=== PATIENT | female | born 1960 | race African-American/Black ===

== ENCOUNTER 2017-02-16 00:22 | Emergency (ER) | payer MEDICAID, OTHER ==
[~2017-02-16] VITALS: Ht 162.6 cm; Wt 68.0 kg
[~2017-02-16 00:22] MED LIST: SULFA
[2017-02-16] MEDS ORDERED: BACITRACIN ZINC OINT UDPKT TOP ONE (01:30)
[2017-02-16] MEDS ORDERED: LIDOCAINE HCL 1% 20ML VIAL (Pyxis) INJ MC ONE (01:30)
[2017-02-16] MEDS ORDERED: IBUPROFEN 600MG TABLET PO ONE (01:30)
[2017-02-16] MEDS ORDERED: TETANUS, DIPHTHERIA, PERTUSSIS VAC/PF 0.5ML (>7YR OLD) IM ONE (01:30)
[2017-02-16 02:05] VITALS: BP 141/74
== END 2017-02-16 03:01 | disposition home or self-care (01) ==
LOC: ER 00:22
DX: S61.412A Laceration without foreign body of left hand, initial encounter (principal); S99.922A Unspecified injury of left foot, initial encounter; R03.0 Elevated blood-pressure reading, without diagnosis of hypertension; F17.200 Nicotine dependence, unspecified, uncomplicated; F14.10 Cocaine abuse, uncomplicated; Y04.0XXA Assault by unarmed brawl or fight, initial encounter; Y93.89 Activity, other specified; Y92.89 Other specified places as the place of occurrence of the external cause; Y99.8 Other external cause status
CPT/HCPCS: 12001; 73130; 73630; 99284; J3490; X7700; Z7610; 90715